=== PATIENT | male | born 1975 | race Caucasian/White ===

== ENCOUNTER 2016-10-30 22:30 | Emergency (ER) | payer SELFPAY ==
--- NOTE | 2016-10-31 04:41 | ED ORDER SUMMARY ---
..... Patient: MARCELO CHAU OrderSheet [facility] VisitID: [id number] [address] [place] [address] 40y, M Registration Date/Time: 10/30/2016 ORDER SHEET Weight: 77.1 kg (stated) Allergies: No Known Drug Allergy GENERAL ORDERS: CBC w Diff Urgent (23:10/30/2016 CBradburn R.N. per protocol) (Ack 23:12 LMuller) (23:12 LMuller) (23:13 CBradburn R.N.) CMP Urgent (:10/30/2016 CBradburn R.N. per protocol) (Ack 23:12 LMuller) (23:12 LMuller) (23:13 CBradburn R.N.) UA-Culture if indicated Urgent (:10/30/2016 CBradburn R.N. per protocol) (Ack 23:12 LMuller) (23:12 LMuller) (23:13 CBradburn R.N.) Ethyl Alcohol Urgent (23:10/30/2016 CBradburn R.N. per protocol) (Ack 23:12 LMuller) (23:12 LMuller) (23:13 CBradburn R.N.) TSH Urgent (:10/30/2016 CBradburn R.N. per protocol) (Ack 23:12 LMuller) (23:12 LMuller) (23:13 CBradburn R.N.) Salicylate Level Urgent (23:10/30/2016 CBradburn R.N. per protocol) (Ack 23:12 LMuller) (23:12 LMuller) (23:13 CBradburn R.N.) Acetaminophen Level Urgent (:10/30/2016 CBradburn R.N. per protocol) (Ack 23:12 LMuller) (23:12 LMuller) (23:13 CBradburn R.N.) Urine Drug Screen Urgent (23:10/30/2016 CBradburn R.N. per protocol) (Ack 23:12 LMuller) (23:12 LMuller) (23:13 CBradburn R.N.) [place] Level Urgent (23:12 10/30/2016 Claudia Skelton per protocol) (23:12 danielaer) (23:13 Claudia Skelton) MEDICATION ORDERS: IV FLUIDS: ORDER SHEET NOTES: [Electronically signed by Lorrie Castaneda R.N. (05:01 10/31/2016)] [Electronically signed by Mark Werner MD (09:37 10/31/2016)] [Electronically locked/signed by Lorrie Castaneda R.N. (05:01 10/31/2016)]
--- NOTE | 2016-10-31 04:41 | ED NURSING NOTES ---
Clinical Report - Nurses [facility] [address] [place] [address] 10/30/2016 22:34 Patient: MARCELO CHAU TRIAGE Triage time 22:43. Acuity: LEVEL 3. Chief Complaint: DEPRESSION, SUICIDAL THOUGHTS and ANXIETY and THOUGHTS OF HARMING SELF and ATTEMPT TO HARM SELF. --22:54 Lorrie Castaneda R.N. 22:43 10/30/16. BP: 134/90 taken on the left arm, while lying. HR: 80 (regular). RR: 18 (regular and unlabored). O2 saturation: 100%. Temp: 98 F. Pain level now: 11/27. --22:54 Lorrie Castaneda R.N. Weight: 77.1 kg stated. Height/Length: 70 inches Per Patient. BMI: 24.4. --22:43 Lorrie Castaneda R.N. Medications Wellbutrin Oral 300 mg, daily (ran out). --22:48 Lorrie Castaneda R.N. KlonoPIN Oral (Tablet 1 mg) 1 tablet, 2x a day (ran out). --22:49 Lorrie Castaneda R.N. [place] Carbonate ER Oral 900 mg , bid (ran out). --22:49 Lorrie Castaneda R.N. Ambien Oral (Tablet 10 mg) 1 tablet, at bedtime (ran out). --22:49 Lorrie Castaneda R.N. Allergies No Known Drug Allergy. --03:01 Lorrie Castaneda R.N. History Arrived by private vehicle. Historian: patient. Unaccompanied. Primary physician (none). ( ran out of bipolar meds 2 weeks ago, 1 week ago having problems sleeping, took sleep med slept for 3 days, hearing voices intermittently, thoughts of self harm, states having the urge to self mutilate by cutting.). He describes feelings of depression and has had sleeping difficulties. PAST MEDICAL HX: Psychiatric illness. Immunizations: up-to-date. SOCIAL HX: Never smoker. History of drug use: marijuana. (3 days ago). No alcohol use. No infectious disease exposure. ABUSE ASSESSMENT: No report of abuse. SELF HARM ASSESSMENT: A self harm assessment was performed. The patient answered "yes" to the question "Have you recently felt down, depressed, or hopeless?", "Have you noticed less interest or pleasure in doing things?", "Do you have thoughts of harming or killing yourself?", "Have you ever tried to hurt yourself before today?" and "Have you recently had thoughts about harming or killing others?" and "no" to the question "Are you here because you tried to hurt yourself?" and "Do you have any dangerous items in your possession?". The patient reports their behavior included suicidal comments and as withdrawn. In the ED the patient has made suicidal comments. A further in-depth assessment is planned. He was placed in direct sight of the nurses station. Clothes and valuables were removed and placed in a safe. The ED physician has been notified. FALL RISK ASSESSMENT: Fall risk assessment completed. No fall risk identified. NUTRITIONAL RISK ASSESSMENT: The nutritional risk assessment revealed no deficiencies. FUNCTIONAL ASSESSMENT: Functional assessment: no impairments noted. LEARNING NEEDS ASSESSMENT: The learning needs assessment revealed no barriers. SKIN INTEGRITY ASSESSMENT: Skin integrity risk assessment completed. No skin integrity risk identified. --22:54 Lorrie Castaneda R.N. PROBLEMS: Bipolar Disorder. --22:51 Lorrie Castaneda R.N. ADDITIONAL SURGERIES: Colonoscopy. Hernia Repair. Right leg surgery. --22:51 Lorrie Castaneda R.N. Interventions ID band on patient. --22:54 Lorrie Castaneda R.N. PHYSICAL ASSESSMENT Ambulatory to room. GENERAL / NEURO / PSYCH: Alert. Oriented X 4. Appears in no acute distress. Speech within normal limits. Affect appears normal. Patient appears calm and cooperative. Good eye contact. Patient appears well-nourished and neat and clean. RESPIRATORY: Respirations not labored. Breath sounds within normal limits. CVS: Normal heart rate and rhythm. Capillary refill less than 2 seconds. GI / : Abdomen soft and nontender. Bowel sounds within normal limits. SKIN: Skin intact. Skin is warm and dry. Skin color is within normal limits. --22:55 Lorrie Castaneda R.N. NURSING PROGRESS NOTES Patient gowned. Suicide precautions initiated. Continuous one on one supervision, clothing / valuables removed and placed in the safe. Patient placed in direct sight of the nurse's station. ED Physician has been notified. Two patient identifiers checked. Call light placed in reach. Side rails up x 1. Bed placed in lowest position. Brakes of bed on. Patient ready for evaluation- chart flagged. --22:56 Lorrie Castaneda R.N. Patient ID band checked for patient name and birthdate: patient confirmed. Blood samples drawn from the right antecubital space with 23g butterfly by nurse per protocol ; labeled in presence of the patient and sent to lab: rainbow set. --23:15 Lorrie Castaneda R.N. Two patient identifiers checked. Call light placed in reach. Side rails up x 1. Bed placed in lowest position. Brakes of bed on. --23:15 Lorrie Castaneda R.N. The patient reports no complaints and he is resting quietly. Overall patient status is the same- he states feels the same. ( resting, given Gatorade to drink, no distress noted, will continue to monitor.). GENERAL / NEURO / PSYCH: Alert. Oriented X 4. Patient appears calm and cooperative. Affect appears normal. --02:41 Lorrie Castaneda R.N. Suicide precautions maintained: a safety sweep of the room is ongoing. The patient reports no complaints. Overall patient status is improved- he states feels better. GENERAL / NEURO / PSYCH: Alert. Oriented X 4. Patient appears calm and cooperative. Affect appears normal. RESPIRATORY: No respiratory distress. SKIN: Skin is warm and dry. Skin color within normal limits. --04:01 Lorrie Castaneda R.N. 04:00 10/31/16. BP: 115/80 taken on the left arm, while lying. HR: 67 (regular and normal rate). RR: 18 (regular and unlabored). O2 saturation: 99% on room air. Temp: deferred. Pain level now: 0/10. --04:01 Lorrie Castaneda R.N. ( Emilia XAVIER with [facility] triage accepted pt at 0402). --04:07 Lorrie Castaneda R.N. ( Transportation arranged to crisis bed facility in [place] via private Ambulance.). --04:30 Anjana Parks ( pt resting quietly, given sandwich and fluids, changed from gown into paper scrubs for transport.). --04:48 Lorrie Castaneda R.N. DISPOSITION / DISCHARGE Departure time: 0457. Transferred. Summary of care provided to EMS via paper ([facility] triage 04:59). Transported via stretcher by EMS. Report was given to a nurse via a phone call. Report included patient's care, treatment, medications, reviewed medication reconcilliation, and condition (including any recent changes or anticipated changes). All questions were answered. Report was acknowledged and care was transferred. (Emilia XAVIER @ 0402). --05:00 Lorrie Castaneda R.N. 04:58 10/31/16. BP: 122/74 taken while lying. HR: 71 (regular and normal rate). RR: 18 (regular). O2 saturation: 99% on room air. Temp: deferred. Pain level now: 0/10. --05:00 Lorrie Castaneda R.N. Locked/Released at 10/31/2016 5:01 by Lorrie Castaneda R.N.
--- NOTE | 2016-10-31 04:41 | ED CLINICAL REPORT ---
Clinical Report - Physicians/Mid Levels [facility] [address] [place] [address] 10/30/2016 22:34 Patient: MARCELO CHAU Time Seen: 23:11. Arrived- By private vehicle. Historian- patient. HISTORY OF PRESENT ILLNESS Chief Complaint: SUICIDAL THOUGHTS. This started about 1 week ago. The patient is non-compliant with medication. Has not been sleeping (he had only 2 short naps over the past week). Has been depressed and had suicidal thoughts. He has had moderate auditory hallucinations. The symptoms are described as severe. No injury is present. 4 days ago he took 2 blister packs of Sominex to "go to sleep.". Similar symptoms previously: Hospitalized. Evaluation/treatment: lithium and has seen psychiatrist. Diagnosis: bipolar disorder. REVIEW OF SYSTEMS No chills, fever, sweats, calf pain or chest pain. No cough, difficulty breathing, pedal edema, palpitations or abdominal pain. No black stools, bloody stools, constipation, nausea or vomiting. The patient has had mild loose stools (he attributes this to not eating much recently). All systems otherwise negative, except as recorded above. PAST HISTORY ( PCP - None Psych - None here - last seen the [facility]). Problems: Mental Illness. Bipolar Disorder. Additional Surgeries: Colonoscopy. Hernia Repair. Right leg surgery. Medications: Ambien Oral (Tablet 10 mg) 1 tablet, at bedtime (ran out). [place] Carbonate ER Oral 900 mg , bid (ran out). KlonoPIN Oral (Tablet 1 mg) 1 tablet, 2x a day (ran out). Wellbutrin Oral 300 mg, daily (ran out). SOCIAL HISTORY Never smoker. Alcohol use. (rare). History of drug use he tried it several days ago to see if it would help him sleep: marijuana. FAMILY HISTORY History of psychiatric problems in first-degree relative (mother, father and sibling). History of suicide attempts (maternal uncle). ADDITIONAL NOTES The nursing notes have been reviewed. PHYSICAL EXAM Vital Signs: 10/30/2016 22:43 BP: 134/90. HR: 80. RR: 18. O2 saturation: 100%. Temp: 98 F. Pain level now: 11/27. Have been reviewed. Appearance: Alert. Eyes: Pupils equal, round and reactive to light. Neck: Normal inspection. CVS: Normal heart rate and rhythm. Heart sounds normal. Respiratory: Breath sounds normal. Abdomen: Soft and nontender. Back: No tenderness. Skin: Skin warm and dry. Normal skin color. Normal skin turgor. Extremities: Extremities exhibit normal ROM. No calf tenderness. No lower extremity edema. Psych / Neuro: Flat affect. Appears to have auditory hallucinations. He expresses suicidal thoughts. Cranial nerves normal (as tested). No cerebellar findings. No motor deficit. No sensory deficit. LABS, X-RAYS, AND EKG Laboratory Tests: UA-Culture if indicated: (CAMILA: 10/30/2016 23:00) ( [facility] 10/30/2016 23:39) Final results Test Result Flag Units (Reference) URINE COLOR YELLOW URINE APPEARANCE CLEAR URINE GLUCOSE NEGATIVE (NEGATIVE) URINE BILIRUBIN NEGATIVE (NEGATIVE) URINE KETONE TRACE (NEGATIVE) URINE SPECIFIC GRAVITY 1.020 (1.010-1.030) URINE PH 6.5 (5.0-8.0) URINE PROTEIN NEGATIVE (NEGATIVE) URINE UROBILINOGEN 0.2 EU/dL (0.2-1.0) URINE NITRITE NEGATIVE (NEGATIVE) URINE BLOOD NEGATIVE (NEGATIVE) URINE [place]UK ESTERASE NEGATIVE (NEGATIVE) URINE RBC 0-1 rbc/hpf (0-1) URINE WBC 0-1 wbc/hpf (0-1) URINE EPITHELIAL CELLS 0-1 EPI/hpf (0-5) URINE BACTERIA NONE SEEN (NONE SEEN) URINE COMMENT CULT NOT INDICATED URINE CULTURES ARE SET-UP BASED ON THE FOLLOWING CRITERIA:POSITIVE NITRITEPOSITIVE LEUKOCYTE ESTERASEGREATER THAN 10 WHITE BLOOD CELLSMODERATE (2+) OR GREATER BACTERIA CBC w Diff: (CAMILA: 10/30/2016 23:00) ( [facility] 10/30/2016 23:26) Final results Test Result Flag Units (Reference) WHITE BLOOD COUNT 11.9 H K/uL (4.5-11.5) RED BLOOD COUNT 4.63 M/uL (4.50-5.90) HEMOGLOBIN 14.7 gm/dL (13.5-17.5) HEMATOCRIT 44.3 % (41.0-53.0) MEAN CELL VOLUME 96 fL (80-100) MEAN CORPUSCULAR HGB 32 pg (26-34) MEAN CORPUSCULAR HGB CONC 33 g/dL (31-37) RED CELL DISTRIBUTION WIDTH 13.0 % (11.6-14.8) PLATELET COUNT 317 K/uL (150-400) LYMPH % 21.5 L % (25-40) MONO % 5.5 % (3-14) GRANULOCYTE % 73.0 [place] Level: (CAMILA: 10/30/2016 23:00) ( [facility] 10/30/2016 23:45) Final results Test Result Flag Units (Reference) LITHIUM <0.2 L mmol/L (0.5-1.5) Urine Drug Screen: (CAMILA: 10/30/2016 23:00) ( [facility] 10/30/2016 23:34) Final results Test Result Flag Units (Reference) AMPHETAMINE/METHAMPHETAMINE NEGATIVE (NEGATIVE) BARBITURATE NEGATIVE (NEGATIVE) BENZODIAZEPINE NEGATIVE (NEGATIVE) CANNABINOID POSITIVE H (NEGATIVE) COCAINE NEGATIVE (NEGATIVE) ECSTASY NEGATIVE (NEGATIVE) METHADONE NEGATIVE (NEGATIVE) OPIATE NEGATIVE (NEGATIVE) The urine drug screen is a qualitative screening test fordrug overdose and abuse. All screen results should beconsidered as presumptive.Drugs screened for are as follows:BenzodiazepinesCocaineAmphetamines/MetamphetaminesTHC (Tetrahydrocannabinol)OpiatesBarbituratesEcstasyMethadonePositive results are unconfirmed. For confirmation, notifythe lab for the specimen to be sent to the reference lab.All confirmations must be performed by a differentmethodology.The ingestion of natural herbal and plant productscontaining Ephedra/Ephedra metabolites can produce in urineone or more substances capable of cross reacting withamphetamine/methamphetamine immunoassays. These testsprovide a preliminary result only. A more specificalternative chemical method must be used to obtain aconfirmed analytical result. Salicylate Level: (CAMILA: 10/30/2016 23:00) ( MsgRcvd 10/30/2016 23:47) Final results Test Result Flag Units (Reference) SALICYLATE 4.7 mg/dL (2.8-20) CMP: (CAMILA: 10/30/2016 23:00) ( MsgRcvd 10/30/2016 23:42) Final results Test Result Flag Units (Reference) GLUCOSE 100 mg/dL (70-110) BUN 17 mg/dL (7-18) CREATININE 0.7 mg/dL (0.6-1.3) Estimated GFR >60 mL/min Estimated GFR- >60 mL/min Note: Persistent reduction over 3 months in eGFR<60 mL/min/1.73 m2 defines CKD. Patients with eGFR values>=60 mL/min/1.73 m2 may also have CKD if evidence ofpersistent proteinuria. Additional information may be foundat www.kidney.org. SODIUM 142 mmol/L (136-145) POTASSIUM 3.5 mmol/L (3.5-5.1) CHLORIDE 106 mmol/L (98-107) CARBON DIOXIDE 24 mmol/L (21-32) CALCIUM 8.7 mg/dL (8.5-10.1) TOTAL PROTEIN 6.5 g/dL (6.4-8.2) ALBUMIN 3.6 g/dL (3.3-5.0) BILIRUBIN, TOTAL 0.6 mg/dL (0.0-1.0) ALKALINE PHOSPHATASE 56 U/L (46-116) AST (SGOT) 23 U/L (15-37) ALT (SGPT) 27 U/L (12-78) ACETAMINOPHEN 3.4 L ug/mL (10-30) ETHYL ALCOHOL <3 L mg/dL (3-10) THYROID STIMULATING HORMONE 2.567 uIU/mL (0.34-3.74) . PROGRESS AND PROCEDURES Consult obtained from mental health. Case discussed. Consultation performed in ED. Patient/family counseled. Old medical records ordered. Disposition: Transferred. CLINICAL IMPRESSION Suicidal ideation. Bipolar disorder. INSTRUCTIONS Prescription Medications: Ambien 10 mg: for 3 days. No refill. Substitution is permissible. (3 pills) [place] Tabs CR 450 mg: every 12 hours for 3 days. No refill. Wellbutrin XL 300mg: take 1 orally every day. No refills. Substitution is permissible. (3 pills) Understanding of the discharge instructions verbalized by patient. (Electronically signed by Mark Werner MD 10/31/2016 9:37)
--- NOTE | 2016-10-31 04:41 | ED ORDER SUMMARY ---
..... Patient: MARCELO CHAU OrderSheet [facility] VisitID: [id number] [address] [place] [address] 40y, M Registration Date/Time: 10/30/2016 ORDER SHEET Weight: 77.1 kg (stated) Allergies: No Known Drug Allergy GENERAL ORDERS: CBC w Diff Urgent (23:10/30/2016 CBradburn R.N. per protocol) (Ack 23:12 LMuller) (23:12 LMuller) (23:13 CBradburn R.N.) CMP Urgent (:10/30/2016 CBradburn R.N. per protocol) (Ack 23:12 LMuller) (23:12 LMuller) (23:13 CBradburn R.N.) UA-Culture if indicated Urgent (:10/30/2016 CBradburn R.N. per protocol) (Ack 23:12 LMuller) (23:12 LMuller) (23:13 CBradburn R.N.) Ethyl Alcohol Urgent (23:10/30/2016 CBradburn R.N. per protocol) (Ack 23:12 LMuller) (23:12 LMuller) (23:13 CBradburn R.N.) TSH Urgent (:10/30/2016 CBradburn R.N. per protocol) (Ack 23:12 LMuller) (23:12 LMuller) (23:13 CBradburn R.N.) Salicylate Level Urgent (23:10/30/2016 CBradburn R.N. per protocol) (Ack 23:12 LMuller) (23:12 LMuller) (23:13 CBradburn R.N.) Acetaminophen Level Urgent (:10/30/2016 CBradburn R.N. per protocol) (Ack 23:12 LMuller) (23:12 LMuller) (23:13 CBradburn R.N.) Urine Drug Screen Urgent (23:10/30/2016 CBradburn R.N. per protocol) (Ack 23:12 LMuller) (23:12 LMuller) (23:13 CBradburn R.N.) [place] Level Urgent (23:12 10/30/2016 Claudia Skelton per protocol) (23:12 danielaer) (23:13 Claudia Skelton) MEDICATION ORDERS: IV FLUIDS: ORDER SHEET NOTES: [Electronically signed by Lorrie Castaneda R.N. (05:01 10/31/2016)] [Electronically signed by Mark Werner MD (09:37 10/31/2016)] [Electronically locked/signed by Lorrie Castaneda R.N. (05:01 10/31/2016)]
--- NOTE | 2016-10-31 09:38 | ED DISCHARGE INSTRUCTIONS ---
Patient: MARCELO CHAU General Instructions [facility] VisitID: [id number] [address] [place] [address] 40y, M Registration Date/Time: 10/30/2016 Suicidal ideation. Bipolar disorder. INSTRUCTIONS Prescription Medications: Ambien 10 mg: for 3 days. No refill. Substitution is permissible. (3 pills) [place] Tabs CR 450 mg: every 12 hours for 3 days. No refill. Wellbutrin XL 300mg: take 1 orally every day. No refills. Substitution is permissible. (3 pills) Understanding of the discharge instructions verbalized by patient. ADDITIONAL INFORMATION Zolpidem Tartrate Oral tablet What is this medicine? ZOLPIDEM (zole PI dem) is used to treat insomnia. This medicine helps you to fall asleep and sleep through the night. How should I use this medicine? Take this medicine by mouth with a glass of water. Follow the directions on the prescription label. It is better to take this medicine on an empty stomach and only when you are ready for bed. Do not take your medicine more often than directed. If you have been taking this medicine for several weeks and suddenly stop taking it, you may get unpleasant withdrawal symptoms. Your doctor or health point of care technician may want to gradually reduce the dose. Do not stop taking this medicine on your own. Always follow your doctor or health point of care technician's advice. A special MedGuide will be given to you by the pharmacist with each prescription and refill. Be sure to read this information carefully each time. Talk to your service loss control consultant regarding the use of this medicine in children. Special care may be needed. What side effects may I notice from receiving this medicine? Side effects that you should report to your doctor or health point of care technician as soon as possible: allergic reactions like skin rash, itching or hives, swelling of the face, lips, or tongue changes in vision confusion depressed mood feeling faint or lightheaded, falls hallucinations problems with balance, speaking, walking restlessness, excitability, or feelings of agitation unusual activities while asleep like driving, eating, making phone calls Side effects that usually do not require medical attention (report to your doctor or health point of care technician if they continue or are bothersome): diarrhea dizziness, or daytime drowsiness, sometimes called a hangover effect headache What may interact with this medicine? herbal medicines like kava kava, melatonin, [place]'s wort and valerian medicines for fungal infections like ketoconazole, fluconazole, or itraconazole medicines for treating depression or other mental problems other medicines given for sleep some medicines for Parkinson' s disease or other movement disorders some medicines used to treat HIV infection or AIDS, like ritonavir What if I miss a dose? This does not apply. This medicine should only be taken immediately before going to sleep. Do not take double or extra doses. Where should I keep my medicine? Keep out of the reach of children. This medicine can be abused. Keep your medicine in a safe place to protect it from theft. Do not share this medicine with anyone. Selling or giving away this medicine is dangerous and against the law. Store at room temperature between 20 and 25 degrees C (68 and 77 degrees F). Throw away any unused medicine after the expiration date. What should I tell my health care provider before I take this medicine? They need to know if you have any of these conditions: depression history of a drug or alcohol abuse problem liver disease lung or breathing disease suicidal thoughts an unusual or allergic reaction to zolpidem, other medicines, foods, dyes, or preservatives or trying to get breast-feeding What should I watch for while using this medicine? Visit your doctor or health point of care technician for regular checks on your progress. Keep a regular sleep schedule by going to bed at about the same time each night. Avoid caffeine-containing drinks in the evening hours. When sleep medicines are used every night for more than a few weeks, they may stop working. Talk to your doctor if you still have trouble sleeping. Do not take this medicine unless you are able to get a full night's sleep before you must be active again. You may not be able to remember things that you do in the hours after you take this medicine. Some people have reported driving, making phone calls, or preparing and eating food while asleep after taking sleep medicine. Take this medicine right before going to sleep. Tell your doctor if you are have any problems with your memory. After you stop taking this medicine, you may have trouble falling asleep. This is called rebound insomnia. This problem usually goes away on its own after 1 or 2 nights. You may get drowsy or dizzy. Do not drive, use machinery, or do anything that needs mental alertness until you know how this medicine affects you. Do not stand or sit up quickly, especially if you are an older patient. This reduces the risk of dizzy or fainting spells. Alcohol may interfere with the effect of this medicine. Avoid alcoholic drinks. This medicine may cause a decrease in mental alertness the morning after use, even if you feel that you are fully awake. Tell your doctor if you will need to perform activities requiring full alertness, such as driving, the next morning after you have taken this medicine. If you or your family notice any changes in your behavior, or if you have any unusual or disturbing thoughts, call your doctor right away. You have been given the following additional information: Zolpidem Tartrate Oral tablet (Electronically signed by Mark Werner MD 10/31/2016 9:37)
--- NOTE | 2016-10-31 09:38 | ED DISCHARGE INSTRUCTIONS ---
Patient: MARCELO CHAU General Instructions [facility] VisitID: [id number] [address] [place] [address] 40y, M Registration Date/Time: 10/30/2016 Suicidal ideation. Bipolar disorder. INSTRUCTIONS Prescription Medications: Ambien 10 mg: for 3 days. No refill. Substitution is permissible. (3 pills) [place] Tabs CR 450 mg: every 12 hours for 3 days. No refill. Wellbutrin XL 300mg: take 1 orally every day. No refills. Substitution is permissible. (3 pills) Understanding of the discharge instructions verbalized by patient. ADDITIONAL INFORMATION Zolpidem Tartrate Oral tablet What is this medicine? ZOLPIDEM (zole PI dem) is used to treat insomnia. This medicine helps you to fall asleep and sleep through the night. How should I use this medicine? Take this medicine by mouth with a glass of water. Follow the directions on the prescription label. It is better to take this medicine on an empty stomach and only when you are ready for bed. Do not take your medicine more often than directed. If you have been taking this medicine for several weeks and suddenly stop taking it, you may get unpleasant withdrawal symptoms. Your doctor or health healthcare or medical may want to gradually reduce the dose. Do not stop taking this medicine on your own. Always follow your doctor or health healthcare or medical's advice. A special MedGuide will be given to you by the pharmacist with each prescription and refill. Be sure to read this information carefully each time. Talk to your technology coordinator regarding the use of this medicine in children. Special care may be needed. What side effects may I notice from receiving this medicine? Side effects that you should report to your doctor or health healthcare or medical as soon as possible: allergic reactions like skin rash, itching or hives, swelling of the face, lips, or tongue changes in vision confusion depressed mood feeling faint or lightheaded, falls hallucinations problems with balance, speaking, walking restlessness, excitability, or feelings of agitation unusual activities while asleep like driving, eating, making phone calls Side effects that usually do not require medical attention (report to your doctor or health healthcare or medical if they continue or are bothersome): diarrhea dizziness, or daytime drowsiness, sometimes called a hangover effect headache What may interact with this medicine? herbal medicines like kava kava, melatonin, Wakeman's wort and valerian medicines for fungal infections like ketoconazole, fluconazole, or itraconazole medicines for treating depression or other mental problems other medicines given for sleep some medicines for Parkinson' s disease or other movement disorders some medicines used to treat HIV infection or AIDS, like ritonavir What if I miss a dose? This does not apply. This medicine should only be taken immediately before going to sleep. Do not take double or extra doses. Where should I keep my medicine? Keep out of the reach of children. This medicine can be abused. Keep your medicine in a safe place to protect it from theft. Do not share this medicine with anyone. Selling or giving away this medicine is dangerous and against the law. Store at room temperature between 20 and 25 degrees C (68 and 77 degrees F). Throw away any unused medicine after the expiration date. What should I tell my health care provider before I take this medicine? They need to know if you have any of these conditions: depression history of a drug or alcohol abuse problem liver disease lung or breathing disease suicidal thoughts an unusual or allergic reaction to zolpidem, other medicines, foods, dyes, or preservatives or trying to get breast-feeding What should I watch for while using this medicine? Visit your doctor or health healthcare or medical for regular checks on your progress. Keep a regular sleep schedule by going to bed at about the same time each night. Avoid caffeine-containing drinks in the evening hours. When sleep medicines are used every night for more than a few weeks, they may stop working. Talk to your doctor if you still have trouble sleeping. Do not take this medicine unless you are able to get a full night's sleep before you must be active again. You may not be able to remember things that you do in the hours after you take this medicine. Some people have reported driving, making phone calls, or preparing and eating food while asleep after taking sleep medicine. Take this medicine right before going to sleep. Tell your doctor if you are have any problems with your memory. After you stop taking this medicine, you may have trouble falling asleep. This is called rebound insomnia. This problem usually goes away on its own after 1 or 2 nights. You may get drowsy or dizzy. Do not drive, use machinery, or do anything that needs mental alertness until you know how this medicine affects you. Do not stand or sit up quickly, especially if you are an older patient. This reduces the risk of dizzy or fainting spells. Alcohol may interfere with the effect of this medicine. Avoid alcoholic drinks. This medicine may cause a decrease in mental alertness the morning after use, even if you feel that you are fully awake. Tell your doctor if you will need to perform activities requiring full alertness, such as driving, the next morning after you have taken this medicine. If you or your family notice any changes in your behavior, or if you have any unusual or disturbing thoughts, call your doctor right away. You have been given the following additional information: Zolpidem Tartrate Oral tablet (Electronically signed by Mark Werner MD 10/31/2016 9:37)
--- NOTE | 2016-10-31 09:38 | ED MED RECONCILIATION SUMMARY ---
Patient: MARCELO CHAU Medication Reconciliation Report [facility] VisitID: [id number] [address] [place] [address] 40y, M Registration Date/Time: 10/30/2016 Weight: 77.1 kg Height/Length: 70 in. BMI: 24.4 ALLERGIES: No Known Drug Allergy The patient's Home Medications are listed below: THE FOLLOWING MEDICATIONS NEED TO BE RECONCILED: Ambien Oral (10 mg) 1 tablet, at bedtime, ran out KlonoPIN Oral (1 mg) 1 tablet, 2x a day, ran out [place] Carbonate ER Oral 900 mg , bid, ran out Wellbutrin Oral 300 mg, daily, ran out The source(s) of the original Home Medication information: Not obtained. The following Medications were given to the patient in the Emergency Department: None. The following Medications were prescribed to the patient: Ambien 10 mg: for 3 days. No refill. Substitution is permissible.(3 pills) -- Mark Werner MD [place] Tabs CR 450 mg: every 12 hours for 3 days. No refill. -- Mark Werner MD Wellbutrin XL 300mg: take 1 orally every day. No refills. Substitution is permissible.(3 pills) -- Mark Werner MD
--- NOTE | 2016-10-31 09:38 | ED MAR SUMMARY ---
..... Medication Administration Record [facility] [address] [place], [place] [id number] Patient: MARCELO CHAU Visit ID: [id number] 40y, M Weight: 77.1 kg Height/Length: 70 in BMI: 24.4 ALLERGIES: No Known Drug Allergy
--- NOTE | 2016-10-31 09:38 | ED MED RECONCILIATION SUMMARY ---
Patient: MARCELO CHAU Medication Reconciliation Report [facility] VisitID: [id number] [address] [place] [address] 40y, M Registration Date/Time: 10/30/2016 Weight: 77.1 kg Height/Length: 70 in. BMI: 24.4 ALLERGIES: No Known Drug Allergy The patient's Home Medications are listed below: THE FOLLOWING MEDICATIONS NEED TO BE RECONCILED: Ambien Oral (10 mg) 1 tablet, at bedtime, ran out KlonoPIN Oral (1 mg) 1 tablet, 2x a day, ran out [place] Carbonate ER Oral 900 mg , bid, ran out Wellbutrin Oral 300 mg, daily, ran out The source(s) of the original Home Medication information: Not obtained. The following Medications were given to the patient in the Emergency Department: None. The following Medications were prescribed to the patient: Ambien 10 mg: for 3 days. No refill. Substitution is permissible.(3 pills) -- Mark Werner MD [place] Tabs CR 450 mg: every 12 hours for 3 days. No refill. -- Mark Werner MD Wellbutrin XL 300mg: take 1 orally every day. No refills. Substitution is permissible.(3 pills) -- Mark Werner MD
--- NOTE | 2016-10-31 09:38 | ED MAR SUMMARY ---
..... Medication Administration Record [facility] [address] [place], [place] [id number] Patient: MARCELO CHAU Visit ID: [id number] 40y, M Weight: 77.1 kg Height/Length: 70 in BMI: 24.4 ALLERGIES: No Known Drug Allergy
== END 2016-10-31 05:00 ==
LOC: ED SRH 22:30
DX: R45.851 Suicidal ideations (principal); T43.596A Underdosing of other antipsychotics and neuroleptics, initial encounter; Z91.128 Patient's intentional underdosing of medication regimen for other reason; F31.9 Bipolar disorder, unspecified; Z81.8 Family history of other mental and behavioral disorders; Z79.899 Other long term (current) drug therapy
CPT/HCPCS: 90004; 90100; 91589; 92010; 92760; 92761; 92762; 92763; 92764; 92765; 92766; 92767; 92780; 93140; 95059; 97000